=== PATIENT | female | born 1970 | race Caucasian/White ===

== ENCOUNTER 2021-10-20 21:27 | Emergency (ER) | payer BC, OTHER ==
[2021-10-20] MEDS ORDERED: Boostrix 0.5 ML (Tdap) VIAL ONE (21:45)
[2021-10-20 22:18] LABS: INR-International Normal Ratio 0.8; Prothrombin Time 11.5 sec (12.0-14.7)
[2021-10-20 22:19] LABS: PTT 34.5 sec (22.9-36.1)
[2021-10-20 22:27] LABS: #Basophils 0.1 thou/uL (0.0-0.2); #Eosinphils 0.2 thou/uL (0.0-0.7); #Lymphocytes 2.1 thou/uL (1.20-3.40); #Monocytes 0.5 thou/uL (0.11-0.59); %Basophils 0.8 % (0.0-1.0); %Eosinophils 1.9 % (0.0-10.0); %Lymphocytes 27.1 % (21.0-51.0); %Neutrophils 64.3 % (42.0-75.0); Hemoglobin 12.9 g/dL (12.0-16.0); Mean Corpuscular HGB CONC 33.9 g/dL (32.0-36.0); Mean Corpuscular Hemoglobin 33.4 pg (27.0-31.0); Mean Corpuscular Volume 98.5 fL (78.0-98.0); Mean Platelet Volume 6.3 fL (7.4-10.4); Platelet Count 309 thou/uL (130-400); RBC Distribution Width 12.2 % (11.5-14.5); Red Blood Cell (RBC) Count 3.88 mill/uL (4.20-5.40); White Blood Cell (WBC) Count 7.8 thou/uL (4.8-10.8)
[2021-10-20 22:28] LABS: ALT (SGPT) 17 U/L (8-55); AST (SGOT) 15 U/L (5-34); Albumin 4.1 g/dL (3.5-5.0); Alkaline Phosphatase 46 U/L (40-110); Anion Gap 14 mmol/L (10-20); BUN (Urea Nitrogen) 19 mg/dL (9.8-20.1); Bilirubin, Total 0.3 mg/dL (0.2-1.2); CK (CPK) 72 U/L (29-168); Calc. Creatinine Clearance 0 mL/min (70-130); Calcium 8.7 mg/dL (7.8-10.44); Carbon Dioxide 27 mmol/L (22-29); Chloride 104 mmol/L (98-107); Globulin 2.4 g/dL (2.4-3.5); Glucose 101 mg/dL (70-105); Protein, Total 6.5 g/dL (6.0-8.3); Sodium 141 mmol/L (136-145)
[2021-10-20] MEDS ORDERED: Acetaminophen 500 MG TAB ONE (22:28)
[2021-10-20] MEDS ORDERED: diphenhydrAMINE 25 MG CAP ONE (23:51)
== END 2021-10-20 23:56 | disposition home or self-care (01) ==
LOC: BURERS 21:27
DX: T63.061A Toxic effect of venom of other North and South American snake, accidental (unintentional), initial encounter (principal); Z23 Encounter for immunization
CPT/HCPCS: 80053; 82550; 85025; 85610; 85730; 90471; 90715